=== PATIENT | male | born 1945 | race Caucasian/White ===

== ENCOUNTER 2019-06-26 23:43 | Emergency (ER) | payer MEDICARE, BC ==
[~2019-06-26] VITALS: Ht 170.2 cm; Wt 63.6 kg
[~2019-06-26 23:43] MED LIST: FLO0.4C PO; OXYB5TAB16 PO; PHEN-716 PO
[2019-06-27] MEDS ORDERED: tranexamic acid 100mg/ml inj. TP ONE
--- NOTE | 2019-06-27 00:18 | NUR ---
CHARLINE DÍAZ TO BEDSIDE TO ASSESS PT ORQAL AIRWAY AND NARES NOSE CLAMP REMOVED AND PT ASKED TO BLOW HIS NOSE PT BLEW OUT MULTIPLE QUATER SIZE CLOTS BUT AIRWAY PATENT O2 SATS 99 % ROOM AIR HR 105 111/61 RR 18
--- NOTE | 2019-06-27 00:27 | NUR ---
DR DÍAZ AT BEDSIDE TO HAVE PATIENT BLOW HIS NOSE AND SWISH HIS MOUTH WITH WATER TO EXPELL ANY CLOTS. PT WAS ABLE TO SPIT, RINSE AND BLOW HIS NOSE WITHOUT ANYMORE BLEEDING
--- NOTE | 2019-06-27 00:30 | NUR ---
PT IS GOING TO BE WATCH FOR A REOCCURANCE OF BLEEDING FOR 30 MIN WILL CONTINUE TO REASSESS
[2019-06-27] MEDS ORDERED: LIDOcaine Viscous 15ml cup MM ONE ×2 (01:45→03:20)
[2019-06-27] MEDS ORDERED: ondansetron 4mg rapidly disintigrating tab PO ONE (01:55)
--- NOTE | 2019-06-27 02:00 | NUR ---
PT BACK TO ROOM 12 [address]PPED PL[address] DR GRIMES NOTIFIED AND AT BEDSIDE
--- NOTE | 2019-06-27 02:10 | NUR ---
DR GRIMES TO PLACE NASAL ROCKET TO LEFT NARES PT TOLERATED WELL
[2019-06-27] MEDS ORDERED: CLIN150C8 PO (02:50)
[2019-06-27] MEDS ORDERED: normal saline 1000ml 1,000 ML IV ONE ×2 (02:50→03:20)
[2019-06-27] MEDS ORDERED: tranexamic acid 100mg/ml inj. IV ONE (03:20)
[2019-06-27 03:22] LABS: BASOPHILS # (AUTO) 0.1 X10'3 (0-0.2); BASOPHILS % (AUTO) 0.7 % (0-1); EOSINOPHILS # (AUTO) 0.2 X10'3 (0-0.9); EOSINOPHILS % (AUTO) 1.4 % (0-6); HEMATOCRIT 37.1 % (42.0-52.0); HEMOGLOBIN 12.3 g/dl (14.0-17.9); LYMPHOCYTES # (AUTO) 2.3 X10'3 (1.1-4.8); LYMPHOCYTES % (AUTO) 14.7 % (21-51); MEAN CORPUSCULAR HEMOGLOBIN 32.7 PG (27.0-31.0); MEAN CORPUSCULAR HGB CONC 33.2 g/dL (33.0-36.5); MEAN CORPUSCULAR VOLUME 98.4 FL (78-98); MEAN PLATELET VOLUME 8.6 FL (7.4-10.4); MONOCYTES # (AUTO) 1.7 X10'3 (0-0.9); NEUTROPHILS # (AUTO) 11.4 X10'3 (1.8-7.7); NEUTROPHILS % (AUTO) 72.2 % (42-75); PLATELET COUNT 257 X10'3 (140-440); RED BLOOD COUNT 3.77 X10'6 (4.70-6.10); RED CELL DISTRIBUTION WIDTH 13.2 % (11.5-14.5); WHITE BLOOD COUNT 15.7 X10'3 (4.5-11.0)
--- NOTE | 2019-06-27 03:28 | NUR ---
Sarah love in [facility] - 06/27/19 at 0329 by ROBERTO PT WAS BLEEDING OUT OF RIGHT NARE AN
--- NOTE | 2019-06-27 03:29 | NUR ---
PT BLEEDING AT A HIGH RATE OF FLOW OUT OF HIS RIGHT NARE, PRESSURE APPLIED TO STOP BLEEDING, IT WAS THEN COMING OUT HIS MOUTH, BUT IT STARTED TO SLOW. MD SPRAYED AFRIN IN HIS NOSE AND THEN INSERTED NASAL TAMPON INTO RIGHT NARE. PT NOW HAS BILAT. HIS BP HAD DROPPED. 2ND LITER OF NS INFUSING. HIS BP HAS ALREADY IMPROVED.
--- NOTE | 2019-06-27 04:16 | NUR ---
PT RESTING COMFORTABLY IN BED SUPINE. NASAL ROCKETS IN PLACE BILATERLY . CURRENTLY NO BLOOD DRAINING FROM NARES AT THIS TIME
[2019-06-27 05:06] VITALS: BP 117/66
[2019-06-27] MEDS ORDERED: HYDR-4383 PO (18:17)
== END 2019-06-27 04:50 | disposition home or self-care (01) ==
LOC: ER 23:43
DX: R04.0 Epistaxis (principal); E78.00 Pure hypercholesterolemia, unspecified; I10 Essential (primary) hypertension; Z98.61 Coronary angioplasty status; Z79.899 Other long term (current) drug therapy
CPT/HCPCS: 36415; 85025; 96374; 99284; J7030

== ENCOUNTER 2019-06-27 15:19 | Emergency (ER) | payer MEDICARE, BC ==
[~2019-06-27] VITALS: Ht 177.8 cm; Wt 68.0 kg
[~2019-06-27 15:19] MED LIST changes: +CLIN150C8 PO
[2019-06-27] MEDS ORDERED: phenylephrine 1% (X-tra strg) 15ml nasal spray NS PRN (16:15)
[2019-06-27] MEDS ORDERED: tranexamic acid 100mg/ml inj. TP ONE (16:15)
[2019-06-27] MEDS ORDERED: HYDR-4383 PO (18:17)
[2019-06-27] MEDS ORDERED: HYDROcodone/acetaminophen 10/325mg tab PO ONE (18:20)
[2019-06-27 18:58] VITALS: BP 120/92
== END 2019-06-27 22:06 | disposition home or self-care (01) ==
LOC: ER 15:20
DX: R04.0 Epistaxis (principal); R19.7 Diarrhea, unspecified; R51 Headache; E78.00 Pure hypercholesterolemia, unspecified; I10 Essential (primary) hypertension; Z98.61 Coronary angioplasty status; Z79.899 Other long term (current) drug therapy
CPT/HCPCS: 30901; 99284

== ENCOUNTER 2019-06-28 05:21 | Emergency (ER) | payer MEDICARE, BC ==
[~2019-06-28] VITALS: Ht 175.3 cm; Wt 63.6 kg
[~2019-06-28 05:21] MED LIST changes: +HYDR-4383 PO
[2019-06-28] MEDS ORDERED: oxymetazoline 15 ML nasal spray NS ONE (05:40)
[2019-06-28] MEDS ORDERED: LIDOcaine Viscous 15ml cup MM ONE (05:40)
--- NOTE | 2019-06-28 06:20 | NUR ---
Received report from Mega Woods RN and care assumed of patient.
[2019-06-28 07:40] VITALS: BP 114/74
[2019-06-28] MEDS ORDERED: LIDOcaine 1% W/epiNEPHrine 1:100,000 20ml vial ONE (08:00)
--- NOTE | 2019-06-28 08:23 | NUR ---
[facility] is not sure when they will be able to transport the patient to [facility]. Patient's has agreed to drive the patient to [facility] in private vehicle. Patient remains stable. KADE Mcduffie at [facility] notified of patient's POV tranfer to their facility.
== END 2019-06-28 08:26 | disposition short-term general hospital (02) ==
LOC: ER 05:21
DX: R04.0 Epistaxis (principal); E78.00 Pure hypercholesterolemia, unspecified; I10 Essential (primary) hypertension; Z95.5 Presence of coronary angioplasty implant and graft; Z79.899 Other long term (current) drug therapy
CPT/HCPCS: 99285

== ENCOUNTER 2022-07-13 13:19 | Outpatient (CLI) | payer MEDICARE, BC ==
[2022-07-13 13:59] LABS: ALBUMIN 3.3 G/DL (3.4-5.0); ANION GAP 7 (8-16); BLOOD UREA NITROGEN 19 MG/DL (7-18); BUN/CREATININE RATIO 13.3 (5.4-32.0); CALCIUM 9.3 MG/DL (8.5-10.1); CHLORIDE 97 MMOL/L (99-107); CREATININE 1.43 MG/DL (0.60-1.10); GLUCOSE 122 MG/DL (70-104); POTASSIUM 3.8 MMOL/L (3.5-5.1); SODIUM 134 MMOL/L (135-145); TOTAL CARBON DIOXIDE 30.3 MMOL/L (24-32); eGFR 48 ML/MIN
[2022-07-13] MEDS ORDERED: iohexol 350MG/ML 100ml bottle IV ONE (14:38)
[2022-07-13] MEDS ORDERED: iohexol 350 MG/ML 50ML vial IV ONE (14:38)
== END 2022-07-13 23:59 | disposition home or self-care (01) ==
LOC: RAD 13:19
PROVIDERS: ATTEND Surgery
DX: I71.40 Abdominal aortic aneurysm, without rupture, unspecified (principal); J43.9 Emphysema, unspecified; I70.0 Atherosclerosis of aorta; I70.8 Atherosclerosis of other arteries
CPT/HCPCS: 36415; 75635; 80048; J3490; Q9967

== ENCOUNTER 2023-03-09 00:19 | Inpatient (IN) | payer MEDICARE, BC ==
[~2023-03-09] VITALS: Ht 165.1 cm; Wt 43.6 kg
[~2023-03-09 00:19] MED LIST changes: +CLIN-214 PO; -CLIN150C8 PO
[2023-03-09] MEDS ORDERED: normal saline 1000ml 1,000 ML IVB ONE (00:50)
[2023-03-09 01:28] LABS: BASOPHILS # (AUTO) 0.1 X10'3 (0-0.2); BASOPHILS % (AUTO) 0.4 % (0-1); EOSINOPHILS # (AUTO) 0.1 X10'3 (0-0.9); EOSINOPHILS % (AUTO) 0.6 % (0-6); HEMATOCRIT 41.9 % (42.0-52.0); LYMPHOCYTES # (AUTO) 1.7 X10'3 (1.1-4.8); LYMPHOCYTES % (AUTO) 9.4 % (21-51); MEAN CORPUSCULAR HEMOGLOBIN 32.2 PG (27.0-31.0); MEAN CORPUSCULAR HGB CONC 33.4 g/dL (33.0-36.5); MEAN CORPUSCULAR VOLUME 96.2 FL (78-98); MEAN PLATELET VOLUME 7.3 FL (7.4-10.4); MONOCYTES # (AUTO) 1.5 X10'3 (0-0.9); MONOCYTES % (AUTO) 8.2 % (2-12); NEUTROPHILS # (AUTO) 14.9 X10'3 (1.8-7.7); NEUTROPHILS % (AUTO) 81.4 % (42-75); PLATELET COUNT 312 X10'3 (140-440); RED BLOOD COUNT 4.36 X10'6 (4.70-6.10); RED CELL DISTRIBUTION WIDTH 13.3 % (11.5-14.5); WHITE BLOOD COUNT 18.3 X10'3 (4.5-11.0)
[2023-03-09 01:34] LABS: ALANINE AMINOTRANSFERASE 8 U/L (12-78); ALBUMIN 2.6 G/DL (3.4-5.0); ALBUMIN/GLOBULIN RATIO 0.6 (1.1-1.5); ALKALINE PHOSPHATASE 66 IU/L (46-116); ANION GAP 10 (8-16); ASPARTATE AMINO TRANSFERASE 13 U/L (10-37); BILIRUBIN,TOTAL 0.4 MG/DL (0.1-1.0); BLOOD UREA NITROGEN 18 MG/DL (7-18); BUN/CREATININE RATIO 16.4 (10.0-20.0); CALCIUM 8.9 MG/DL (8.5-10.1); CHLORIDE 102 MMOL/L (99-107); GLUCOSE 98 MG/DL (70-104); LIPASE < 50 U/L (73-393); SODIUM 135 MMOL/L (135-145); eCRCL 35 ML/MIN; eGFR 65 ML/MIN
[2023-03-09 01:38] LABS: POTASSIUM 2.9 MMOL/L (3.5-5.1)
[2023-03-09] MEDS ORDERED: potassium Cl 20mEq/100mL bag 100 ML IV SCH (02:55)
[2023-03-09] MEDS ORDERED: Potassium Cl inj 20 MEQ in normal saline 1000ml 990 ML IV SCH (02:55)
[2023-03-09] MEDS ORDERED: Potassium Cl 40 MEQ in sodium chloride 0.45% 500 ML IV ONE (03:10)
[2023-03-09 03:12] LABS: C-REACTIVE PROTEIN 9.53 MG/DL (0.0-0.5); MAGNESIUM 1.9 MG/DL (1.5-2.4); PHOSPHORUS 2.6 MG/DL (2.3-4.5)
[2023-03-09] MEDS ORDERED: iohexol 300mg/ml 100ml inj. ONE (03:15)
[2023-03-09 03:32] LABS: PLATELET ESTIMATE NORMAL; TOTAL CELLS COUNTED 100
[2023-03-09] MEDS ORDERED: diphenhydrAMINE 25mg capsule PO PRN (05:30)
[2023-03-09] MEDS ORDERED: magnesium hydroxide 30ml (MOM) UD suspension PO PRN (05:30)
[2023-03-09] MEDS ORDERED: potassium Cl 20 mEq SR tablet PO PRN (05:30)
[2023-03-09] MEDS ORDERED: ondansetron/PF 4mg/2ml inj IV PRN (05:30)
[2023-03-09] MEDS ORDERED: HYDROcodone/acetaminophen 5mg/325mg tablet PO PRN (05:30)
[2023-03-09] MEDS ORDERED: potassium Cl 40MEQ/1/2NS 520ml 520 ML IV PRN (05:30)
[2023-03-09] MEDS ORDERED: acetaminophen 650mg rectal suppository RC PRN (05:30)
[2023-03-09] MEDS ORDERED: diphenhydrAMINE 50 mg/ml inj IV PRN (05:30)
[2023-03-09] MEDS ORDERED: acetaminophen 325mg tablet PO PRN ×2 (05:30)
[2023-03-09] MEDS ORDERED: ondansetron 4mg rapidly disintigrating tab PO PRN (05:30)
[2023-03-09] MEDS ORDERED: morphine 2 MG/ML inj. syringe IV PRN ×2 (05:30)
[2023-03-09] MEDS ORDERED: bisacodyl 10mg suppository rectal RC PRN (05:30)
[2023-03-09] MEDS ORDERED: mag hydrox/Alum hydrox/simeth 30ml oral suspension PO PRN (05:30)
[2023-03-09] MEDS ORDERED: potassium Cl 20mEq in NS 1,000 ML IV SCH (05:30)
[2023-03-09] MEDS ORDERED: HYDROcodone/acetaminophen 10/325mg tab PO PRN (05:30)
[2023-03-09] MEDS ORDERED: VANCOMYCIN 750MG IV in NS 250 ML IV SCH (06:00)
[2023-03-09] MEDS ORDERED: piperacillin/tazo 4.5gm/100ml 100 ML IV SCH (07:00)
[2023-03-09] MEDS: pantoprazole 40MG/NS 100ML BAG 100 ML IV SCH (07:50)
[2023-03-09] MEDS: heparin, porcine 5000 units/ml vial SQ SCH ×2 (08:00→22:46)
[2023-03-09] MEDS ORDERED: vancomycin/NS 1 GM ADD-VANTAGE 250 ML IV SCH (08:00)
[2023-03-09] MEDS: docusate sod 100mg capsule PO SCH ×2 (08:00→20:00)
[2023-03-09] MEDS: K and/or MAG REPLACEMENT MC SCH ×2 (08:00→20:00)
[2023-03-09 08:11] LABS: APTT 33 SECONDS (22-32); INR 1.1 INR; PROTHROMBIN TIME 11.3 SECONDS (9.0-12.0)
[2023-03-09] MEDS ORDERED: ALPR0.5T9 PO (09:25)
[2023-03-09] MEDS ORDERED: PRAV40TA3 PO (09:25)
[2023-03-09] MEDS ORDERED: ASPI81TA52 PO (09:26)
--- NOTE | 2023-03-09 09:45 | NUR ---
PATIENT HYGIENE PROVIDED AT THIS TIME FOR INCONTINENT VOID. GOWN CHANGED, LINEN CHANGED, REPOSITIONED FOR COMFORT AND BARRIER CREAM APPLIED, NO BM. CALL LIGHT WITHIN REACH.
[2023-03-09] MEDS ORDERED: ALPRAZolam 0.5mg tablet PO PRN (11:40)
--- NOTE | 2023-03-09 12:02 | NUR ---
HYGIENE PROVIDED AT THIS TIME FOR INCONTINENT BM, BROWN AND LIQUID, SMALL AMOUNT, BARRIER CREAM RE APPLIED, NOT ENOUGH STOOL FOR SPECIMEN. PATIENT TOLERATED WELL, REPOSITIONED FOR COMFORT.
--- NOTE | 2023-03-09 14:04 | NUR ---
spoke to dr. colbert resident. No specimen to send yet for bed 4. last night stool sample was formed and only a smear on pull up with calamine lotion today.
[2023-03-09] MEDS: normal saline 1000ml 1,000 ML IV SCH (14:55)
[2023-03-09] MEDS: vancomycin 125mg/5ml ORAL solution 5ml UD oral syringe PO SCH ×2 (14:55→20:00)
[2023-03-09 16:20] LABS: C DIFF ANTIGEN POSITIVE (NEGATIVE); C DIFF SPECIMEN=DIARRHEA? ACCEPTABLE
[2023-03-09 16:50] LABS: OCCULT BLOOD STOOL NEGATIVE (Neg)
[2023-03-09 16:57] LABS: C DIFFICILE TOXINS A&B POSITIVE (Neg)
--- NOTE | 2023-03-09 17:50 | NUR ---
HYGIENE PROVIDED AT THIS TIME, SMALL BM, TOLERATED WELL, BARRIER CREAM APPLIED, CALL LIGHT WITHIN REACH.
[2023-03-09 19:20] VITALS: BP 136/90; PULSE 79; RESP 14; TEMP 97.8; O2SAT 99
[2023-03-09 20:00] VITALS: RESP 18; O2SAT 100
[2023-03-09] MEDS ORDERED: temazepam 15mg capsule PO PRN (21:00)
[2023-03-09 22:00] VITALS: BP 133/85; PULSE 79; RESP 18; TEMP 97.6; O2SAT 100
[2023-03-10] MEDS: normal saline 1000ml 1,000 ML IV SCH (01:43)
[2023-03-10 02:00] VITALS: BP 126/86; PULSE 79; RESP 16; TEMP 97.8; O2SAT 100
[2023-03-10] MEDS: vancomycin 125mg/5ml ORAL solution 5ml UD oral syringe PO SCH ×4 (03:30→18:27)
--- NOTE | 2023-03-10 04:08 | NUR ---
Placed order for wound consult for blister/reddness to L/inner buttock on admission.
[2023-03-10 06:00] VITALS: BP 93/68; PULSE 80; RESP 14; TEMP 98.2; O2SAT 98
--- NOTE | 2023-03-10 06:45 | NUR ---
Patient in room PCU 3013. I have received report from PAWAN Lr and had the opportunity to ask questions and assume patient care.
[2023-03-10] MEDS ORDERED: aspirin 81mg, enteric-coated 1 TAB TABLET.DR PO SCH (08:00)
[2023-03-10] MEDS ORDERED: tamsulosin 0.4mg capsule PO SCH (08:00)
[2023-03-10] MEDS ORDERED: VANCOMYCIN 750MG IV in NS 250 ML IV SCH (08:00)
[2023-03-10] MEDS ORDERED: atorvastatin 10mg tablet PO SCH (08:00)
[2023-03-10 08:29] LABS: BASOPHILS # (AUTO) 0.1 X10'3 (0-0.2); BASOPHILS % (AUTO) 0.8 % (0-1); EOSINOPHILS # (AUTO) 0.1 X10'3 (0-0.9); EOSINOPHILS % (AUTO) 0.8 % (0-6); HEMATOCRIT 37.7 % (42.0-52.0); HEMOGLOBIN 12.5 g/dl (14.0-17.9); LYMPHOCYTES % (AUTO) 9.7 % (21-51); MEAN CORPUSCULAR HEMOGLOBIN 32.3 PG (27.0-31.0); MEAN CORPUSCULAR HGB CONC 33.1 g/dL (33.0-36.5); MEAN CORPUSCULAR VOLUME 97.5 FL (78-98); MEAN PLATELET VOLUME 8.1 FL (7.4-10.4); MONOCYTES # (AUTO) 0.8 X10'3 (0-0.9); NEUTROPHILS # (AUTO) 8.4 X10'3 (1.8-7.7); NEUTROPHILS % (AUTO) 80.7 % (42-75); PLATELET COUNT 300 X10'3 (140-440); RED BLOOD COUNT 3.87 X10'6 (4.70-6.10); WHITE BLOOD COUNT 10.5 X10'3 (4.5-11.0)
[2023-03-10 08:35] LABS: ALANINE AMINOTRANSFERASE 11 U/L (12-78); ALBUMIN 2.3 G/DL (3.4-5.0); ALBUMIN/GLOBULIN RATIO 0.6 (1.1-1.5); ALKALINE PHOSPHATASE 57 IU/L (46-116); ANION GAP 8 (8-16); ASPARTATE AMINO TRANSFERASE 12 U/L (10-37); BILIRUBIN,TOTAL 0.4 MG/DL (0.1-1.0); BLOOD UREA NITROGEN 10 MG/DL (7-18); BUN/CREATININE RATIO 9.9 (10.0-20.0); CALCIUM 8.5 MG/DL (8.5-10.1); CHLORIDE 104 MMOL/L (99-107); CREATININE 1.01 MG/DL (0.60-1.10); GLUCOSE 84 MG/DL (70-104); POTASSIUM 3.1 MMOL/L (3.5-5.1); SODIUM 137 MMOL/L (135-145); TOTAL PROTEIN 6.3 G/DL (6.4-8.2); eCRCL 38 ML/MIN; eGFR 72 ML/MIN
[2023-03-10] MEDS ORDERED: docusate sod 100mg capsule PO PRN (08:40)
[2023-03-10] MEDS: K and/or MAG REPLACEMENT MC SCH (08:50)
[2023-03-10 09:11] LABS: PLATELET ESTIMATE NORMAL; TOTAL CELLS COUNTED 100
[2023-03-10 10:00] VITALS: BP 103/73; PULSE 68; RESP 14; RESP 18; TEMP 97.7; O2SAT 99
[2023-03-10] MEDS: pantoprazole 40MG/NS 100ML BAG 100 ML IV SCH (10:10)
[2023-03-10] MEDS: heparin, porcine 5000 units/ml vial SQ SCH (10:11)
[2023-03-10] MEDS: potassium Cl 20 mEq SR tablet PO PRN ×3 (10:27→18:27)
[2023-03-10] MEDS ORDERED: AMIT100T61 PO (12:25)
[2023-03-10] MEDS ORDERED: albumin (human) 25% 100ml IV 100 ML IV ONE (13:45)
[2023-03-10 14:00] VITALS: BP 116/72; PULSE 73; RESP 19; TEMP 97.8; O2SAT 95
--- NOTE | 2023-03-10 14:27 | NUR ---
Malnutrition consult: Pt seen at bedside, reports UBW probably 170 lbs with gradual wt loss of 60-70 lbs over the last two years with last known scaled weight 110 lbs a week ago at his physician's office. 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 Pt visibly malnourished with severe fat and muscle wasting throughout his body, meeting criteria for severe malnutrition. Pt admit for sepsis, C.diff, and TYREE. Pt with a one month h/o diarrhea per H&P, likely contributing to malnutrition status. Pt initially on a clear liquid diet and with 100% PO intake, now on a mechanical soft diet, pending documentation of PO intake. Pt agrees to chop all food and extra gravy/sauce to assist with meal intake, d/w dietary. Additional food preferences were obtained and d/w dietary, see below. Pt states he does not like Ensure so he would not like to receive them at this time though reports making milkshakes with a different ONS that he gets from [employer]. RD discussed ways to increase nutrient intake through nutrient dense food and encouraged pt to reconsider receiving Ensure during admit to assist with nutrition repletion. Pt denies food allergies. LBM 03/09 per EMR. Pt provided with RD contact information and encouraged to reach out if needed. Will continue to follow closely. Recommendations: 1) Continue EC7 diet; chop all food with extra gravy/sauce per pt request 2) Theresa food preferences: chocolate shake BIDBD, cottage cheese and yogurt WL, gelatin WS 3) Consider Ensure Enlive TID for nutrient repletion if pt agreeable-pt declined ONS 03/10 4) Consider antidiarrheal/probiotic per physician discretion 5) Scaled weight this admit; subsequent weekly scaled weights Addendum: 03/10/23 at [address] Amended: Links added.
[2023-03-10] MEDS ORDERED: POTA-206 PO (15:11)
[2023-03-10] MEDS ORDERED: VANC125C5 PO (15:20)
--- NOTE | 2023-03-10 18:45 | NUR ---
DC inst provided to pt. IV x2 DC'd, tips intact. All belongings sent w/pt. WC to vehicle.
[2023-03-10] MEDS ORDERED: amitriptyline 50mg tablet PO SCH (21:00)
[2023-03-11] MEDS ORDERED: pantoprazole 40mg Tablet.DR PO SCH (07:30)
[2023-03-12] MEDS ORDERED: VANCOMYCIN LEVEL IV ONE (07:30)
== END 2023-03-10 18:45 | disposition home or self-care (01) | DRG 871 ==
LOC: ER 00:20 → ED HOLD 05:33 → PCU 3S 19:57
PROVIDERS: ADMIT Family Medicine; ATTEND Internal Medicine
DX: A41.9 Sepsis, unspecified organism (principal); E43 Unspecified severe protein-calorie malnutrition; Z68.1 Body mass index [BMI] 19.9 or less, adult; M48.56XA Collapsed vertebra, not elsewhere classified, lumbar region, initial encounter for fracture; A04.71 Enterocolitis due to Clostridium difficile, recurrent; E87.20 Acidosis, unspecified; N17.9 Acute kidney failure, unspecified; E78.00 Pure hypercholesterolemia, unspecified; I25.10 Atherosclerotic heart disease of native coronary artery without angina pectoris; I12.9 Hypertensive chronic kidney disease with stage 1 through stage 4 chronic kidney disease, or unspecified chronic kidney disease; N18.9 Chronic kidney disease, unspecified; E87.6 Hypokalemia; I73.9 Peripheral vascular disease, unspecified; N40.0 Benign prostatic hyperplasia without lower urinary tract symptoms; R62.7 Adult failure to thrive; E88.09 Other disorders of plasma-protein metabolism, not elsewhere classified; Z79.899 Other long term (current) drug therapy
CPT/HCPCS: 36415; 71045; 74177; 80053; 82272; 83605; 83690; 83735; 83880; 84100; 84132; 84443; 85007; 85025; 85610; 85730; 86140; 87040; 87045; 87046; 87081; 87324; 87449; 89055; 96374; 96375; 97116; 97161; 97530; 99285; A4349; A6213; A6250; C9113; G0378; J1644; J2543; J3370; J3480; J3490; J7030; J7040; J7050; P9047; Q9967

== ENCOUNTER 2023-08-06 09:26 | Outpatient (CLI) | payer MEDICARE, BC ==
[2023-08-01 12:47] LABS: ALBUMIN 2.9 G/DL (3.4-5.0); ANION GAP 8 (8-16); BLOOD UREA NITROGEN 14 MG/DL (7-18); CHLORIDE 102 MMOL/L (99-107); CREATININE 1.17 MG/DL (0.60-1.10); GLUCOSE 96 MG/DL (70-104); POTASSIUM 3.6 MMOL/L (3.5-5.1); SODIUM 137 MMOL/L (135-145); TOTAL CARBON DIOXIDE 27.2 MMOL/L (24-32); eGFR 60 ML/MIN
[~2023-08-06 09:26] MED LIST changes: +ALPR0.5T9 PO; +AMIT100T61 PO; +ASPI81TA52 PO; -CLIN-214 PO; -HYDR-4383 PO; -OXYB5TAB16 PO; -PHEN-716 PO; +POTA-206 PO; +PRAV40TA3 PO; +VANC125C5 PO
[2023-08-06] MEDS ORDERED: iohexol 350MG/ML 100ml bottle IV ONE (09:39)
[2023-08-06] MEDS ORDERED: iohexol 350 MG/ML 50ML vial IV ONE (09:39)
== END 2023-08-06 23:59 | disposition home or self-care (01) ==
LOC: 64 CT 09:26
PROVIDERS: ATTEND Surgery
DX: Z01.818 Encounter for other preprocedural examination (principal); I71.40 Abdominal aortic aneurysm, without rupture, unspecified; J43.9 Emphysema, unspecified; J84.10 Pulmonary fibrosis, unspecified; N32.89 Other specified disorders of bladder; I70.0 Atherosclerosis of aorta; I70.8 Atherosclerosis of other arteries
CPT/HCPCS: 36415; 75635; 80048; J3490; Q9967